=== PATIENT | female | born 1965 | race Caucasian/White ===

== ENCOUNTER 2017-01-01 20:22 | Emergency (ER) | payer BC, OTHER ==
[~2017-01-01] VITALS: Ht 162.6 cm; Wt 82.5 kg
[2017-01-01 20:52] VITALS: BP 168/79; PULSE 90; RESP 18; TEMP 99; O2SAT 97
[2017-01-01] MEDS ORDERED: SODIUM CHLORIDE 0.9% FLUSH 10 ML FLUSH IV FLUSH PRN (21:30)
--- NOTE | 2017-01-01 21:38 | PD ---
HPI Chief Complaint: Complaint Time Seen by Provider: 21:16 Travel History International Travel<30 days: No Contact w/Intl Traveler<30days: No Traveled to known affect area: No History of Present Illness HPI PATIENT HAS HAD 2 DAYS OF FREQUENCY, HESITANCY, DYSURIA, URGENCY....SHE STATES " I DON'T KNOW WHAT'S GOING ON, I FEEL LIKE I NEED TO GO THEN JUST A FEW DROPS OR NOTHING COMES OUT" ALSO C/O N/V/ BUT NO DIARRHEA...ABD CRAMPING/FULLNESS SENSATION ABOUT 5/10 PFSH Past Medical History ?: Not Social History Tobacco Use: No Allergies-Medications (Allergen,Severity, Reaction): Coded Allergies: No Known Allergies (Unverified , 01/01/17) Review of Systems Except as stated in HPI: all other systems reviewed are Neg Gastrointestinal: Positive: Abdominal Pain Genitourinary: Positive: Urgency, Frequency, Dysuria, Decreased Urinary Output , Hesitancy Physical Exam Narrative GENERAL: SKIN: Warm and dry. HEAD: Atraumatic. Normocephalic. EYES: Pupils equal and round. No scleral icterus. No injection or drainage. ENT: No nasal bleeding or discharge. Mucous membranes pink and moist. NECK: Trachea midline. No JVD. CARDIOVASCULAR: Regular rate and rhythm. RESPIRATORY: No accessory muscle use. Clear to auscultation. Breath sounds equal bilaterally. GASTROINTESTINAL: Abdomen soft, MILD TTP OVER SUPRAPUBIC REGION, nondistended. MUSCULOSKELETAL: Extremities without clubbing, cyanosis, or edema. No obvious deformities. NEUROLOGICAL: Awake and alert. No obvious cranial nerve deficits. Motor grossly within normal limits. Five out of 5 muscle strength in the arms and legs. Normal speech. PSYCHIATRIC: Appropriate mood and affect; insight and judgment normal. Data Data Last Documented VS Vital Signs Date Time Temp Pulse Resp B/P Pulse Ox O2 Delivery O2 Flow Rate FiO2 01/01/17 20:52 99.0 90 18 168/79 97 Orders Complete Blood Count With Diff (01/01/17 21:16) Comprehensive Metabolic Panel (01/01/17 21:16) Lipase (01/01/17 21:16) Urinalysis - C+S If Indicated (01/01/17 21:16) Ct Abd/Pel W/O Iv Contrast (01/01/17 21:16) Iv Access Insert/Monitor (01/01/17 21:16) Ecg Monitoring (01/01/17 21:16) Oximetry (01/01/17 21:16) NPO (01/01/17 21:16) Sodium Chloride 0.9% Flush (Ns Flush) (01/01/17 21:30) Urinary Catheter Insert/Apply (01/01/17 21:19) Sodium Chlor 0.9% 1000 Ml Inj (Ns 1000 M (01/01/17 21:45) Labs Laboratory Tests Test 01/01/17 01/01/17 21:35 22:00 White Blood Count 6.8 TH/MM3 Red Blood Count 4.46 MIL/MM3 Hemoglobin 14.3 GM/DL Hematocrit 42.6 % Mean Corpuscular Volume 95.4 FL Mean Corpuscular Hemoglobin 32.0 PG Mean Corpuscular Hemoglobin 33.6 % Concent Red Cell Distribution Width 14.7 % Platelet Count 347 TH/MM3 Mean Platelet Volume 7.9 FL Neutrophils (%) (Auto) 72.7 % Lymphocytes (%) (Auto) 18.5 % Monocytes (%) (Auto) 8.0 % Eosinophils (%) (Auto) 0.2 % Basophils (%) (Auto) 0.6 % Neutrophils # (Auto) 5.0 TH/MM3 Lymphocytes # (Auto) 1.3 TH/MM3 Monocytes # (Auto) 0.5 TH/MM3 Eosinophils # (Auto) 0.0 TH/MM3 Basophils # (Auto) 0.0 TH/MM3 CBC Comment DIFF FINAL Differential Comment Sodium Level 142 MEQ/L Potassium Level 3.7 MEQ/L Chloride Level 107 MEQ/L Carbon Dioxide Level 27.7 MEQ/L Anion Gap 7 MEQ/L Blood Urea Nitrogen 12 MG/DL Creatinine 0.96 MG/DL Estimat Glomerular Filtration 62 ML/MIN Rate Random Glucose 94 MG/DL Calcium Level 10.0 MG/DL Total Bilirubin 0.5 MG/DL Aspartate Amino Transf 20 U/L (AST/SGOT) Alanine Aminotransferase 31 U/L (ALT/SGPT) Alkaline Phosphatase 63 U/L Total Protein 8.0 GM/DL Albumin 4.2 GM/DL Lipase 337 U/L Urine Color YELLOW Urine Turbidity CLEAR Urine pH 6.0 Urine Specific [place] 1.027 Urine Protein 30 mg/dL Urine Glucose (UA) NEG mg/dL Urine Ketones NEG mg/dL Urine Occult Blood TRACE Urine Nitrite NEG Urine Bilirubin NEG Urine Leukocyte Esterase NEG Urine RBC 4-9 /hpf Urine WBC 6-8 /hpf Urine Squamous Epithelial 6-8 /hpf Cells Urine Amorphous Sediment SMALL Urine Bacteria OCC /hpf Urine Mucus MANY /lpf Microscopic Urinalysis Comment CULT NOT INDICATED MDM Medical Decision Making Medical Screen Exam Complete: Yes Emergency Medical Condition: Yes Medical Record Reviewed: Yes Differential Diagnosis UTI V COLITIS V DIVERTIC V URINARY RETENTION V LIVER DZ V PANCREATITIS V DEHYDRATION Narrative Course CT NEG FOR COLITIS/DIVERTIC, LABS NEG FOR LIVER DZ/PANCREATITIS NOR ANY MAJOR DEHYDRATION Diagnosis Primary Impression: UTI Scripts Phenazopyridine (Pyridium)100 Mg [id number] Mg PO Q8HR #12 TAB Ref 0 Prov:Owen Cabezas MD 01/01/17 Ondansetron Odt (Zofran Odt)4 Mg Tab4 Mg SL Q6HR PRN (Nausea/Vomiting) #12 TAB Prov:Owen Cabezas MD 01/01/17 Ciprofloxacin 500 Mg [id number] Mg PO BID #14 TAB Prov:Owen Cabezas MD 01/01/17 Disposition: 01 DISCHARGE HOME Condition: Stable Owen Cabezas MD Jan 01, 2017 21:37
[2017-01-01] MEDS ORDERED: SODIUM CHLOR 0.9% 1000 ML INJ 1,000 ML IV ONE (21:45)
[2017-01-01 21:52] LABS: BASOPHIL % 0.6 % (0.0-2.0); EOSINOPHIL % 0.2 % (0.0-4.0); HEMATOCRIT 42.6 % (35.0-46.0); HEMO FLAGS DIFF FINAL; LYMPH % 18.5 % (9.0-44.0); LYMPHOCYTE # 1.3 TH/MM3 (1.0-4.8); MEAN CELL VOLUME 95.4 FL (80.0-100.0); MEAN CORPUSCULAR HGB CONC 33.6 % (32.0-36.0); NEUT % 72.7 % (16.0-70.0); PLATELET COUNT 347 TH/MM3 (150-450); RED BLOOD COUNT 4.46 MIL/MM3 (4.00-5.30); RED CELL DISTRIBUTION WIDTH 14.7 % (11.6-17.2); WHITE BLOOD COUNT 6.8 TH/MM3 (4.0-11.0)
[2017-01-01 22:00] LABS: CHLORIDE 107 MEQ/L (98-107); POTASSIUM 3.7 MEQ/L (3.5-5.1); SODIUM (NA) 142 MEQ/L (136-145)
[2017-01-01 22:04] LABS: ANION GAP 7 MEQ/L (5-15); BICARBONATE 27.7 MEQ/L (21.0-32.0); BLOOD UREA NITROGEN 12 MG/DL (7-18)
[2017-01-01 22:06] LABS: ALT (GPT) 31 U/L (10-53); AST (GOT) 20 U/L (15-37)
[2017-01-01 22:07] LABS: GLOMERULAR FILTRATION RATE 62 ML/MIN (>89)
[2017-01-01 22:08] LABS: TOTAL BILIRUBIN ADULT 0.5 MG/DL (0.2-1.0)
[2017-01-01 22:09] LABS: ALKALINE PHOSPHATASE 63 U/L (45-117)
[2017-01-01 22:09] LABS: BLOOD, URINE TRACE (NEG); GLUCOSE,URINE NEG (NEG); KETONE, URINE NEG (NEG); NITRITE,URINE NEG (NEG)
--- NOTE | 2017-01-01 22:10 | RADRPT ---
EXAM DATE/TIME: 01/01/2017 21:33 [facility] COMPARISON: No previous studies available for comparison. INDICATIONS : Nausea and vomiting all day. Feeling of a full bladder but unable to urinate. ORAL CONTRAST: No oral contrast ingested. RADIATION DOSE: 17.55 CTDIvol (mGy) MEDICAL HISTORY : None SURGICAL HISTORY : section. ENCOUNTER: Initial ACUITY: 1 day PAIN SCALE: 4/10 LOCATION: Bilateral lower quadrant TECHNIQUE: Volumetric scanning of the abdomen and pelvis was performed. Using automated exposure control and ad justment of the mA and/or kV according to patient size, radiation dose was kept as low as reasonably achievable to obtain optimal diagnostic quality images. DICOM format image data is available electro nically for review and comparison. FINDINGS: Lung bases are clear. No acute findings in the liver, spleen, adrenals, kidneys or pancreas. No calci fied gallstones and no ductal dilatation. No free fluid. No bowel obstruction. No adenopathy. Intrauterine device present. The bladder is almos t empty. CONCLUSION: 1. No acute findings on abdomen and pelvic CT. Intrauterine device present. No obstruction, free flui d or free air. Jesse Richey MD on January 01, 2017 at 22:02 Board Certified Radiologist. This report was verified electronically.
[2017-01-01 22:25] LABS: URINE COLOR YELLOW (YELLW/STRAW)
[2017-01-01 22:26] LABS: MUCUS URINE MANY /lpf (OCC)
[2017-01-01 22:28] LABS: BACTERIA, URINE OCC /hpf; COMMENT (UR) CULT NOT INDICATED; CULTURE IF INDICATED CULT NOT INDICATED
[2017-01-01] MEDS ORDERED: CIPR500T2 PO (22:41)
[2017-01-01] MEDS ORDERED: ZOFR4TAB3 SL (22:41)
[2017-01-01] MEDS ORDERED: PHEN0.4T PO (22:41)
[2017-01-01 23:00] VITALS: BP 137/74; PULSE 78; RESP 16; O2SAT 99
[2017-01-01] MEDS ORDERED: PHENAZOPYRIDINE HCL 200 MG TAB PO ONE (23:00)
[2017-01-01] MEDS ORDERED: ONDANSETRON HCL 4 MG/2 ML VIAL IV PUSH ONE (23:00)
[2017-01-01] MEDS ORDERED: cefTRIAXone INJ 1,000 MG in SODIUM CHLORIDE 0.9% INJ 100 ML IV ONE (23:00)
[2017-01-02 00:35] VITALS: BP 128/72; PULSE 88; RESP 16; O2SAT 98
[2017-01-02 00:41] VITALS: BP 142/78; PULSE 87; RESP 16; O2SAT 99
== END 2017-01-02 00:44 | disposition home or self-care (01) ==
LOC: PHED 20:22
DX: N39.0 Urinary tract infection, site not specified (principal)
CPT/HCPCS: 74176; 80053; 81001; 83690; 85025; 96361; 96365; 96375; 99285; J0696; J2405; J7030